=== PATIENT | female | born 1980 | race Caucasian/White ===

== ENCOUNTER 2019-04-24 16:52 | Emergency (ER) | payer OTHER ==
[~2019-04-24] VITALS: Ht 170.2 cm; Wt 90.7 kg
[~2019-04-24 16:52] MED LIST: IBUPROFEN600 MG ORAL; MACROBID100 MG ORAL; NKM; PENICILLIN V P500 MG ORAL
[2019-04-24 17:02] VITALS: BP 152/105
--- NOTE | 2019-04-24 17:10 | NUR ---
ED Nurse Note: Patient walked into ED from home patient reports she slipped at the grocery store yesterday, patient reports she slipped and fell, twisted her left knee. Bruising noted around the left eye and the right hand. patient reports she gets buises easily. patient reports that her abdominal hernia appears to be more swollent than usual. patient is alert awake x4 ambulatory, able to bear weight, breathing unlabored and even.
--- NOTE | 2019-04-24 18:14 | Emergency Room Report ---
History of Present Illness General Chief Complaint: Multiple Trauma/Fall Source: Patient Present Illness HPI 38-year-old female presents to the emergency department complaining of 7 out of 10 severity localized left knee pain with intermittent feeling of instability. Patient status post mechanical slip and fall yesterday where she twisted her knee upon falling as well as pain in the left side of her head. Patient denies loss of consciousness she denies midline neck or back pain. Patient denies nausea or vomiting. She reports bruise to the left side of her face and left eye. Patient reports her knee pain is her primary symptoms she has pain exacerbation upon attempts to bear weight and ambulate. She denies previous injury to this extremity she reports some swelling pain is also exacerbated with flexion she does have the ability to extend without pain. No open wounds or bleeding. Patient denies taking blood thinning medications. Denies numbness tingling or loss of sensation or gross motor movements of the extremities, incontinence of bowel or bladder. Denies CP, Palpitations, AMS, dizziness, Changes in Vision, weakness or a sudden severe headache. Allergies: Coded Allergies: LATEX (Verified Allergy, Mild, Rash, 05/09/14) SULFA (SULFONAMIDE ANTIBIOTICS) (Unverified Allergy, Mild, Shortness of Breath, 05/09/14) Patient History Past Medical History: see triage record Past Surgical History: none Pertinent Family History: none Last Menstrual Period: february Now: No Reviewed Nursing Documentation: PMH: Agreed; PSxH: Agreed Nursing Documentation-PMH Past Medical History: No History, Except For Hx Gastrointestinal Problems: Yes - hernia Review of Systems All Other Systems: negative except mentioned in HPI Physical Exam Vital Signs Date Time Temp Pulse Resp B/P (MAP) Pulse Ox O2 Delivery O2 Flow Rate FiO2 04/24/19 17:02 98.1 84 18 152/105 (121) 97 Room Air Sp02 EP Interpretation: reviewed, normal General Appearance: no apparent distress, alert, GCS 15, non-toxic Head: normocephalic, other - Healing ecchymosis about the left eye Eyes: left eye other - Ecchymosis around the lower lid; bilateral eye normal inspection, bilateral eye PERRL, bilateral eye EOMI ENT: hearing grossly normal, normal voice Neck: full range of motion, no bony tend Respiratory: lungs clear, normal breath sounds, speaking full sentences Cardiovascular #1: regular rate, rhythm, normal capillary refill Cardiovascular #2: 2+ dorsalis pedis (R), 2+ dorsalis pedis (L) Musculoskeletal: back normal, gait/station normal - Compensatory favoring the left leg., normal range of motion, tender - Tenderness to palpation to the medial aspect of the left knee, some notable swelling visible, negative anterior and posterior drawer sign. Moderate pain with valgus stressing no pain with varus stressing. No obvious deformity otherwise no bruise no erythema and no palpable posterior mass. Neurologic: alert, oriented x3, responsive, motor strength/tone normal, sensory intact, cerebellar normal, speech normal, grossly normal Psychiatric: judgement/insight normal Skin: Ecchymosis/Bruising - About the lower left eyelid/orbit. Medical Decision Making PA Attestation Dr. Lora is my supervising Physician whom patient management has been discussed with. Diagnostic Impression: Primary Impression: Left knee sprain Qualified Codes: S83.92XA - Sprain of unspecified site of left knee, initial encounter Additional Impression: Knee effusion, left ER Course 38-year-old female presents to the emergency department complaining of 7 out of 10 severity localized left knee pain with intermittent feeling of instability. Patient status post mechanical slip and fall yesterday where she twisted her knee upon falling as well as pain in the left side of her head. Patient denies loss of consciousness she denies midline neck or back pain. Patient denies nausea or vomiting. She reports bruise to the left side of her face and left eye. Patient reports her knee pain is her primary symptoms she has pain exacerbation upon attempts to bear weight and ambulate. She denies previous injury to this extremity she reports some swelling pain is also exacerbated with flexion she does have the ability to extend without pain. No open wounds or bleeding. Patient denies taking blood thinning medications. Denies numbness tingling or loss of sensation or gross motor movements of the extremities, incontinence of bowel or bladder. Denies CP, Palpitations, AMS, dizziness, Changes in Vision, weakness or a sudden severe headache. Ddx considered but are not limited to Fracture, dislocation, contusion, Sprain/ Strain/Spasm, subdural hematoma, concussion, acute head injury, orbital fracture just to name a few Vital signs: are WNL, pt. is afebrile H&PE are most consistent with musculoskeletal injury will perform imaging to r/ o fractures/dislocations of the left knee no physical exam findings to suggest acute orbital fracture/blowout fracture/entrapment. No focal neurological deficits the patient is responsive and answering questions appropriately I do not suspect a significant acute head injury at this time. ORDERS: -Urine Hcg: Denies CP, Palpitations, LOC, AMS, dizziness, Changes in Vision, Sensation, paresthesias, or a sudden severe headache. - X-ray Left knee 3 views - negative for fx, Dislocation, or significant soft tissue injury, per preliminary read in ED, and signed by RONNIE Mallory , my supervising physician has reviewed, and agrees with my interpretation. ED INTERVENTIONS: -Tylenol PO --Knee Immobilizer splint applied to the left Knee by medical technician assistant. Pt. remains neurovascularly intact. --Patient is provided with crutches and instructed on their use DISCHARGE: At this time pt. is stable for d/c to home. Will provide printed patient care instructions, and any necessary prescriptions. Care plan and follow up instructions have been discussed with the patient prior to discharge. Other X-Ray Diagnostic Results Other X-Ray Diagnostic Results : X-Ray ordered: Left Knee # of Views/Limited Vs Complete: 3 View Indication: Pain EP Interpretation: Yes RONNIE Xray: Interpretation reviewed, by supervising MD, and agrees with findings. Interpretation: no dislocation, no soft tissue swelling, no fractures Impression: No acute disease Electronically Signed by: Arti Mallory PA-C Last Vital Signs Date Time Temp Pulse Resp B/P (MAP) Pulse Ox O2 Delivery O2 Flow Rate FiO2 04/24/19 17:02 98.1 84 18 152/105 (121) 97 Room Air Status: improved Disposition: HOME, SELF-CARE Condition: Stable Scripts Acetaminophen* (TYLENOL EXTRA STRENGTH*) 500 Mg Tablet 500 MG ORAL Q6H, #20 TAB 0 Refills Prov: Arti Mallory 04/24/19 Patient Instructions: Combined Knee Ligament Sprain Additional Instructions: Take medications as directed. Follow up with an WORK ENVIRONMENT SAFETY INSPECTOR in 3-5 days, even if your symptoms have resolved. If symptoms persist MRI may be required at the discretion of your PCP or Ortho Specialist. --Please review list of primary care clinics, if you do not already have a primary care provider who can give you an Orthopedic Referral. Return sooner to ED if new symptoms occur, or current symptoms become worse. Do not drink alcohol, drive, or operate heavy machinery while taking [place] as this may cause drowsiness. - Please note that this Emergency Department Report was dictated using [employer] current inspector technology software, occasionally this can lead to erroneous entry secondary to interpretation by the dictation equipment. Arti Mallory Apr 24, 2019 18:14
--- NOTE | 2019-04-24 18:19 | NUR ---
ED Nurse Note: UA SENT TO LAB
--- NOTE | 2019-04-24 19:13 | NUR ---
HAND-OFF: Report given to Brittany LEDESMA. patient is stable in bed. sandwiches and juice from the fridge provided for her daughters as patient requested.
--- NOTE | 2019-04-24 19:14 | NUR ---
ED Nurse Note: Report received from CALLIE Harley. Xray being performed at bed side .
[2019-04-24] MEDS ORDERED: TYLENOL EXTRA500 MG ORAL (20:05)
[2019-04-24 20:10] VITALS: BP 150/98
--- NOTE | 2019-04-24 20:10 | NUR ---
ER DISCHARGE NOTE: Patient is cleared to be discharged per ERMD, pt is aox4, on room air, with stable vital signs. pt was given dc and prescription instructions, pt was able to verbalize understanding, pt id band and removed without complications. pt is able to ambulate with crutches. Immobilizer provided to pt. pt took all belongings.
--- NOTE | 2019-04-25 11:32 | Diagnostic Imaging Report ---
Indication: Knee pain, status post fall Technique: 3 views of the left knee Comparison: None Findings: No acute fractures. No dislocations. Joint spaces are preserved Impression: Negative
== END 2019-04-24 20:10 | disposition home or self-care (01) ==
LOC: EMR 17:48
DX: S83.92XA Sprain of unspecified site of left knee, initial encounter (principal); M25.462 Effusion, left knee; Z88.2 Allergy status to sulfonamides; Z91.040 Latex allergy status; W01.0XXA Fall on same level from slipping, tripping and stumbling without subsequent striking against object, initial encounter; Y92.9 Unspecified place or not applicable
CPT/HCPCS: 29505; 81025; 99283